=== PATIENT | female | born 2000 | race American Indian/Alaskan Native ===

== ENCOUNTER 2019-01-27 08:48 | Emergency (ER) | payer OTHER ==
[2019-01-27 09:47] VITALS: BP 124/81; PULSE 88; RESP 16; TEMP 98.5; O2SAT 98
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
[2019-01-27] MEDS ORDERED: Lidocaine Hydrochloride 5 ML INJ ONE (11:50)
== END 2019-01-27 12:10 | disposition home or self-care (01) ==
LOC: C.ER 08:48
DX: S01.01XA Laceration without foreign body of scalp, initial encounter (principal); Y04.0XXA Assault by unarmed brawl or fight, initial encounter